=== PATIENT | female | born 1985 | race Asian ===

== ENCOUNTER 2018-02-25 10:29 | Inpatient (IN) | payer MEDICAID, OTHER ==
[~2018-02-25] VITALS: Ht 177.8 cm; Wt 68.2 kg
[2018-02-25] MEDS ORDERED: ondansetron/PF 4mg/2ml inj IV ONE ×2 (10:50→13:15)
[2018-02-25] MEDS ORDERED: morphine 4 MG/ML inj SYRINge IV ONE ×2 (10:50→13:15)
--- NOTE | 2018-02-25 10:51 | NUR ---
SINDY CONTRERAS AT BEDSIDE, ATTEMPTING IV ACCESS.
[2018-02-25 11:28] LABS: BASOPHILS % (AUTO) 0.3 % (0-1); EOSINOPHILS # (AUTO) 0.1 X10'3 (0-0.9); HEMATOCRIT 41.6 % (35.0-45.0); LYMPHOCYTES # (AUTO) 2.3 X10'3 (1.1-4.8); LYMPHOCYTES % (AUTO) 35.1 % (21-51); MEAN CORPUSCULAR HEMOGLOBIN 31.3 PG (27.0-31.0); MEAN CORPUSCULAR HGB CONC 33.6 % (33.0-36.5); MEAN PLATELET VOLUME 8.1 FL (7.4-10.4); MONOCYTES # (AUTO) 0.2 X10'3 (0-0.9); MONOCYTES % (AUTO) 3.4 % (2-12); NEUTROPHILS # (AUTO) 3.9 X10'3 (1.8-7.7); NEUTROPHILS % (AUTO) 60.2 % (42-75); PLATELET COUNT 251 X10'3 (140-440); RED BLOOD COUNT 4.48 X10'6 (4.20-5.60); RED CELL DISTRIBUTION WIDTH 12.8 % (11.5-14.5); WHITE BLOOD COUNT 6.6 X10'3 (4.5-11.0)
[2018-02-25 11:35] LABS: URINE HCG NEGATIVE (NEG)
[2018-02-25 11:39] LABS: INR 1.2 INR; PARTIAL THROMBOPLASTIN TIME 26 SECONDS (22-32); PROTHROMBIN TIME 12.2 SECONDS (9.0-12.0)
[2018-02-25 11:42] LABS: ALANINE AMINOTRANSFERASE 43 U/L (12-78); ALBUMIN/GLOBULIN RATIO 0.8 (1.1-1.5); ALKALINE PHOSPHATASE 64 IU/L (46-116); ANION GAP 10 (8-16); BILIRUBIN,TOTAL 0.5 MG/DL (0.1-1.0); BLOOD UREA NITROGEN 14 MG/DL (7-18); BUN/CREATININE RATIO 14.4 (6.6-38.0); CHLORIDE 103 MMOL/L (99-107); CREATININE 0.97 MG/DL (0.40-0.90); GLUCOSE 97 MG/DL (70-104); SODIUM 141 MMOL/L (135-145); TOTAL CARBON DIOXIDE 27.9 MMOL/L (24-32); TOTAL PROTEIN 8.9 G/DL (6.4-8.2); eGFR 66 ML/MIN
[2018-02-25] MEDS ORDERED: iohexol 300mg/ml 100ml inj. ONE (11:42)
[2018-02-25 11:43] LABS: ETHANOL < 0.010 GM/DL (0.0-0.010)
[2018-02-25 11:44] LABS: ASPARTATE AMINO TRANSFERASE 46 U/L (10-37); POTASSIUM 3.8 MMOL/L (3.5-5.1)
[2018-02-25 11:47] LABS: CLARITY,URINE CLEAR (Clear); COLOR,URINE YELLOW (Yellow); GLUCOSE, URINE NEGATIVE (Neg); KETONES,URINE NEGATIVE (Neg); LEUKOCYTE ESTERASE ,URINE NEGATIVE (Neg); NITRITES, URINE NEGATIVE (Neg); OCCULT BLOOD,URINE SMALL (Neg); PROTEIN,URINE NEGATIVE (Neg); UROBILINOGEN,URINE 0.2 E.U/dL (0.2-1.0)
[2018-02-25 11:48] LABS: URINE AMPHETAMINE SCREEN NEGATIVE (Neg); URINE BARBITUATE SCREEN NEGATIVE (Neg); URINE BENZODIAZEPINES SCREEN NEGATIVE (Neg); URINE CANNABINOID SCREEN NEGATIVE (Neg); URINE COCAINE SCREEN NEGATIVE (Neg); URINE METHADONE SCREEN NEGATIVE (Neg); URINE OPIATE SCREEN POSITIVE (Neg); URINE PHENCYCLIDINE SCREEN NEGATIVE (Neg)
[2018-02-25 11:52] LABS: UA COLLECTION TYPE STRAIGHT CATH
[2018-02-25 11:55] LABS: BACTERIA,URINE NONE SEEN /HPF (Neg); MUCUS STRANDS NONE SEEN /LPF (Neg); RBC,URINE 0-2 /HPF (0-2); SQUAMOUS EPITHELIAL CELL,UR FEW /LPF (FEW); WBC,URINE NONE SEEN /HPF (0-4)
--- NOTE | 2018-02-25 12:44 | NUR ---
CALLED PT SISTER LUCI [phone] LEFT MESSAGE FOR HER TO CALL BACK PT CHILDREN NEED TO BE PICKED UP FROM [facility], ALSO CALLED [facility] AT [facility] [phone] AND PRIMARY NURSE AT [facility] STATES RECEIVED CALL AND SOMEONE IS COMING TO AUTOMATIC I THREADING MACHINE FEEDER THE CHILDREN FROM [facility] SOON, INFORMED SU[facility]I TO LET THAT PERSON KNOW THE PATIENT IS AT [facility], [facility] STATES WILL RELAY THAT INFORMATION.
--- NOTE | 2018-02-25 12:45 | NUR ---
PT BACK FROM CT
[2018-02-25 13:15] LABS: TROPONIN I < 0.04 NG/ML (0.0-0.05)
--- NOTE | 2018-02-25 13:30 | NUR ---
DR LEAL AT BEDSIDE PLAING A C-COLLAR ON PT.
--- NOTE | 2018-02-25 13:38 | NUR ---
PT TO MRI
--- NOTE | 2018-02-25 14:30 | NUR ---
PT BACK FROM MRI
--- NOTE | 2018-02-25 14:35 | NUR ---
DR LEAL AT BEDSIDE, HE REMOVED C-COLLAR
[2018-02-25] MEDS ORDERED: NO HOME MEDS (14:50)
[2018-02-25 15:15] VITALS: BP 119/62
--- NOTE | 2018-02-25 15:15 | NUR ---
Received report from DIANE Thomas. Patient arrived to the floor stable and appropriate. IVF and Dilaudid CADD started per MD orders.
[2018-02-25] MEDS ORDERED: mag hydrox/Alum hydrox/simeth 30ml oral suspension PO PRN (15:40)
[2018-02-25] MEDS ORDERED: ondansetron/PF 4mg/2ml inj IV PRN (15:40)
[2018-02-25] MEDS ORDERED: magnesium hydroxide 30ml (MOM) UD suspension PO PRN (15:40)
[2018-02-25] MEDS ORDERED: acetaminophen 325mg tablet PO PRN (15:40)
[2018-02-25] MEDS ORDERED: CADD PCA waste documentation MC SCH (16:25)
[2018-02-25] MEDS: HYDROmorphone/NS 1 mg/ml CADD 50 ML IV SCH ×5 (17:00→23:00)
[2018-02-25] MEDS: sodium chloride 0.45% 1,000 ML IV SCH (17:15)
[2018-02-25] MEDS ORDERED: ringers solution, lacted 1,000 ML IV ONE (17:43)
--- NOTE | 2018-02-25 18:20 | NUR ---
Problems reprioritized. Patient report given, questions answered & plan of care reviewed with DIANE VARGAS.
[2018-02-25 19:30] VITALS: BP 117/73
[2018-02-26] VITALS (25 sets, daily range): BP systolic 107–174; BP diastolic 66–89
[2018-02-26] MEDS: HYDROmorphone/NS 1 mg/ml CADD 50 ML IV SCH ×12 (01:00→23:00)
[2018-02-26] MEDS: sodium chloride 0.45% 1,000 ML IV SCH ×2 (02:13→15:56)
[2018-02-26] MEDS ORDERED: famotidine 20mg tablet PO ONE (06:00)
[2018-02-26 06:25] LABS: ALBUMIN 3.2 G/DL (3.4-5.0); ANION GAP 9 (8-16); BLOOD UREA NITROGEN 10 MG/DL (7-18); CALCIUM 8.5 MG/DL (8.5-10.1); CHLORIDE 102 MMOL/L (99-107); CREATININE 0.83 MG/DL (0.40-0.90); GLUCOSE 102 MG/DL (70-104); POTASSIUM 3.8 MMOL/L (3.5-5.1); SODIUM 136 MMOL/L (135-145); eGFR 79 ML/MIN
[2018-02-26 06:32] LABS: BASOPHILS % (AUTO) 0.4 % (0-1); EOSINOPHILS # (AUTO) 0.1 X10'3 (0-0.9); EOSINOPHILS % (AUTO) 1.1 % (0-6); HEMATOCRIT 34.7 % (35.0-45.0); HEMOGLOBIN 11.6 g/dl (12.0-16.0); LYMPHOCYTES # (AUTO) 1.9 X10'3 (1.1-4.8); LYMPHOCYTES % (AUTO) 29.6 % (21-51); MEAN CORPUSCULAR HEMOGLOBIN 31.1 PG (27.0-31.0); MEAN CORPUSCULAR HGB CONC 33.5 % (33.0-36.5); MEAN CORPUSCULAR VOLUME 92.9 FL (78-98); MEAN PLATELET VOLUME 7.9 FL (7.4-10.4); MONOCYTES # (AUTO) 0.5 X10'3 (0-0.9); MONOCYTES % (AUTO) 7.8 % (2-12); NEUTROPHILS # (AUTO) 3.9 X10'3 (1.8-7.7); NEUTROPHILS % (AUTO) 61.1 % (42-75); PLATELET COUNT 233 X10'3 (140-440); RED BLOOD COUNT 3.74 X10'6 (4.20-5.60); WHITE BLOOD COUNT 6.3 X10'3 (4.5-11.0)
--- NOTE | 2018-02-26 06:59 | NUR ---
Problems reprioritized. Patient report given, questions answered & plan of care reviewed with LONDON. Addendum: 02/26/18 at 0659 by Jd Silver RN Amended: Links added.
[2018-02-26] MEDS ORDERED: BUPIVAcaine/PF 2.5mg/ml (0.25%) 10ml vial ONE (07:25)
[2018-02-26] MEDS ORDERED: ceFAZolin 1000mg inj ONE ×2 (07:25→09:51)
[2018-02-26] MEDS ORDERED: cloNIDine hcl/PF 100mcg/ml inj ONE (07:45)
[2018-02-26] MEDS ORDERED: ROPIVAcaine 0.5% (5mg/ml) 30ml vial ONE (07:45)
[2018-02-26] MEDS ORDERED: midazolam 2 mg/2 ml injection ONE (07:48)
[2018-02-26] MEDS ORDERED: fentaNYL /PF 50mcg/ml 5ml ampule ONE (07:49)
[2018-02-26] MEDS ORDERED: propofol inj 20 ML IV ONE (07:49)
[2018-02-26] MEDS ORDERED: hydrALAZINE 20mg/ml inj. IV PRN (07:55)
[2018-02-26] MEDS ORDERED: morphine 4 MG/ML inj SYRINge IV PRN ×2 (07:55)
[2018-02-26] MEDS ORDERED: fentaNYL/PF 50MCG/1 ML 2ML syringe IV PRN ×2 (07:55)
[2018-02-26] MEDS ORDERED: labetalol 20mg/4ml (5mg/ml) syringe IV PRN (07:55)
[2018-02-26] MEDS ORDERED: ringers solution, lacted 1,000 ML IV SCH (07:55)
[2018-02-26] MEDS ORDERED: ondansetron/PF 4mg/2ml inj IV PRN (07:55)
[2018-02-26] MEDS ORDERED: enoxaparin 40mg/0.4ml syringe SUBCUT SCH (08:00)
[2018-02-26] MEDS ORDERED: sevoflurane 250ml liquid IH ONE (08:02)
[2018-02-26] MEDS ORDERED: LIDOcaine 2% (20mg/ml) 5ml vial ONE (08:43)
[2018-02-26] MEDS ORDERED: dexamethasone sod phosphate 4mg/ml inj. ONE (09:11)
[2018-02-26] MEDS ORDERED: ondansetron/PF 4mg/2ml inj ONE (09:12)
--- NOTE | 2018-02-26 11:25 | NUR ---
Received from OR via SURGICAL BED, accompanied by Anesthesiologist DR. BRISCOE and report given by Anesthesiolgist. PT ARRIVED WITH O2 VIA MASK AT 10L WITH OPA IN PLACE. DR. BRISCOE RESPOS AIRWAY AND HELD JAW FOR SEVERAL MINS PT WAS STILL OBSTRUCTING. REPOS OF OPA WAS HELPFUL AND PT ABLE TOO MOVE AIR WITHOUT JAW LIFT. PULSES AND JANITOR CLEANER WNL. DRESSINGS AND CASTS CDI. LT ARM IN SLING, LT LEG IN IMMOBILIZER. FC IN PLACE WITH CLEAT YELLOW URINE.
--- NOTE | 2018-02-26 11:45 | NUR ---
PT MORE AWAKE ANSWERS YES/NO QUESTIONS WITH HEAD NODS. OPA REMOVED PT CDB WELL.
[2018-02-26] MEDS ORDERED: meperidine/PF 25mg/ml syringe ONE (12:00)
--- NOTE | 2018-02-26 13:00 | NUR ---
Receive report from OR. Patient is stable. Will be coming up shortly.
--- NOTE | 2018-02-26 13:15 | NUR ---
Report called to receiving nurse ELLIOT RN. Transferred via BED TO ROOM 353A WITH NO Belongings BROUGHT TO THE RR. FAMILY NOTIFIED BY DR. SOLANO PT OUT OF SURGERY AND THINGS WENT WELL. Special Issues communicated to receiving nurse. VSS ON 4L NC.
[2018-02-26] MEDS: ceFAZolin 1GM/D5W- ADD-VANTAGE 50 ML IV SCH ×2 (16:02→23:38)
--- NOTE | 2018-02-26 17:55 | NUR ---
Problems reprioritized. Patient report given, questions answered & plan of care reviewed with DIANE Britt.
[2018-02-27] MEDS: HYDROmorphone/NS 1 mg/ml CADD 50 ML IV SCH ×12 (01:00→23:00)
[2018-02-27 05:12] LABS: BASOPHILS % (AUTO) 0.2 % (0-1); EOSINOPHILS % (AUTO) 0 % (0-6); HEMATOCRIT 33.4 % (35.0-45.0); HEMOGLOBIN 11.4 g/dl (12.0-16.0); LYMPHOCYTES # (AUTO) 1.2 X10'3 (1.1-4.8); LYMPHOCYTES % (AUTO) 21.5 % (21-51); MEAN CORPUSCULAR HEMOGLOBIN 31.5 PG (27.0-31.0); MEAN CORPUSCULAR VOLUME 92.5 FL (78-98); MEAN PLATELET VOLUME 7.6 FL (7.4-10.4); MONOCYTES # (AUTO) 0.3 X10'3 (0-0.9); MONOCYTES % (AUTO) 5.2 % (2-12); NEUTROPHILS # (AUTO) 4.2 X10'3 (1.8-7.7); NEUTROPHILS % (AUTO) 73.1 % (42-75); PLATELET COUNT 183 X10'3 (140-440); RED BLOOD COUNT 3.61 X10'6 (4.20-5.60); RED CELL DISTRIBUTION WIDTH 12.4 % (11.5-14.5); WHITE BLOOD COUNT 5.8 X10'3 (4.5-11.0)
[2018-02-27 05:36] LABS: ALBUMIN 2.6 G/DL (3.4-5.0); ANION GAP 7 (8-16); BLOOD UREA NITROGEN 8 MG/DL (7-18); BUN/CREATININE RATIO 9.2 (6.6-38.0); CALCIUM 8.1 MG/DL (8.5-10.1); CHLORIDE 100 MMOL/L (99-107); CREATININE 0.87 MG/DL (0.40-0.90); GLUCOSE 108 MG/DL (70-104); POTASSIUM 4.1 MMOL/L (3.5-5.1); SODIUM 134 MMOL/L (135-145); TOTAL CARBON DIOXIDE 26.7 MMOL/L (24-32); eGFR 75 ML/MIN
[2018-02-27 05:53] VITALS: BP 109/63
--- NOTE | 2018-02-27 06:30 | NUR ---
Patient in room [facility] 353. I have received report from DIANE Britt and had the opportunity to ask questions and assume patient care.
--- NOTE | 2018-02-27 06:36 | NUR ---
Problems reprioritized. Patient report given, questions answered & plan of care reviewed with MONSERRAT. Addendum: 02/27/18 at 0637 by Jd Silver RN Amended: Links added.
[2018-02-27 07:00] VITALS: BP 107/59
[2018-02-27] MEDS: ceFAZolin 1GM/D5W- ADD-VANTAGE 50 ML IV SCH ×2 (08:19→16:18)
[2018-02-27 11:05] VITALS: BP 123/68
[2018-02-27] MEDS: enoxaparin 40mg/0.4ml syringe SUBCUT SCH (13:37)
--- NOTE | 2018-02-27 18:50 | NUR ---
Problems reprioritized. Patient report given, questions answered & plan of care reviewed with DIANE Leary.
--- NOTE | 2018-02-27 19:04 | NUR ---
Patient in room [facility] 353. I have received report from DIANE Anders and had the opportunity to ask questions and assume patient care.
[2018-02-27 20:00] VITALS: BP 121/69
[2018-02-27] MEDS: sodium chloride 0.45% 1,000 ML IV SCH (22:17)
[2018-02-28] VITALS: BP 101/63
[2018-02-28] MEDS: ceFAZolin 1GM/D5W- ADD-VANTAGE 50 ML IV SCH ×2 (00:06→07:35)
[2018-02-28] MEDS: HYDROmorphone/NS 1 mg/ml CADD 50 ML IV SCH ×10 (01:00→19:00)
[2018-02-28 05:38] LABS: BASOPHILS % (AUTO) 0.1 % (0-1); EOSINOPHILS % (AUTO) 0 % (0-6); HEMATOCRIT 34.4 % (35.0-45.0); HEMOGLOBIN 11.4 g/dl (12.0-16.0); LYMPHOCYTES # (AUTO) 0.9 X10'3 (1.1-4.8); LYMPHOCYTES % (AUTO) 11.3 % (21-51); MEAN CORPUSCULAR HGB CONC 33.3 % (33.0-36.5); MEAN CORPUSCULAR VOLUME 93.1 FL (78-98); MEAN PLATELET VOLUME 7.8 FL (7.4-10.4); MONOCYTES # (AUTO) 0.5 X10'3 (0-0.9); MONOCYTES % (AUTO) 6.1 % (2-12); NEUTROPHILS # (AUTO) 6.5 X10'3 (1.8-7.7); NEUTROPHILS % (AUTO) 82.5 % (42-75); PLATELET COUNT 195 X10'3 (140-440); RED BLOOD COUNT 3.69 X10'6 (4.20-5.60); RED CELL DISTRIBUTION WIDTH 12.5 % (11.5-14.5); WHITE BLOOD COUNT 7.9 X10'3 (4.5-11.0)
[2018-02-28 05:55] LABS: ALBUMIN 2.6 G/DL (3.4-5.0); ANION GAP 9 (8-16); BLOOD UREA NITROGEN 9 MG/DL (7-18); BUN/CREATININE RATIO 11.7 (6.6-38.0); CALCIUM 8.9 MG/DL (8.5-10.1); CHLORIDE 98 MMOL/L (99-107); CREATININE 0.77 MG/DL (0.40-0.90); GLUCOSE 124 MG/DL (70-104); POTASSIUM 3.9 MMOL/L (3.5-5.1); SODIUM 134 MMOL/L (135-145); TOTAL CARBON DIOXIDE 26.9 MMOL/L (24-32); eGFR 86 ML/MIN
--- NOTE | 2018-02-28 06:30 | NUR ---
Patient in room [facility]TH[facility] 4009. I have received report from DIANE Leary and had the opportunity to ask questions and assume patient care.
--- NOTE | 2018-02-28 06:36 | NUR ---
Problems reprioritized. Patient report given, questions answered & plan of care reviewed with DIANE Anders.
[2018-02-28 07:00] VITALS: BP 100/61
[2018-02-28] MEDS: enoxaparin 40mg/0.4ml syringe SUBCUT SCH (07:35)
[2018-02-28 12:00] VITALS: BP 116/66
[2018-02-28] MEDS: sodium chloride 0.45% 1,000 ML IV SCH (15:46)
--- NOTE | 2018-02-28 16:50 | NUR ---
Report called to receiving RNMeme.
--- NOTE | 2018-02-28 17:20 | NUR ---
Pt transferred to room 4009B
[2018-02-28 18:00] VITALS: BP 135/84
--- NOTE | 2018-02-28 18:15 | NUR ---
Patient in room ORTHO 4009. I have received report from DIANE Valentine and had the opportunity to ask questions and assume patient care.
[2018-02-28 22:00] VITALS: BP 120/79
[2018-03-01] MEDS: oxyCODONE/APAP 5-325mg tablet PO PRN ×4 (05:03→18:56)
[2018-03-01 06:00] VITALS: BP 128/79
--- NOTE | 2018-03-01 06:32 | NUR ---
Problems reprioritized. Patient report given, questions answered & plan of care reviewed with DIANE Delatorre.
[2018-03-01] MEDS: enoxaparin 40mg/0.4ml syringe SUBCUT SCH (08:04)
[2018-03-01 10:00] VITALS: BP 127/82
[2018-03-01 18:00] VITALS: BP 130/79
--- NOTE | 2018-03-01 18:20 | NUR ---
Problems reprioritized. Patient report given, questions answered & plan of care reviewed with Keisha CONTRERAS.
--- NOTE | 2018-03-01 18:31 | NUR ---
Patient in room ORTHO 4009. I have received report from Nandini CONTRERAS and had the opportunity to ask questions and assume patient care.
[2018-03-01 22:00] VITALS: BP 132/79
[2018-03-02] MEDS: oxyCODONE/APAP 5-325mg tablet PO PRN ×3 (00:04→21:08)
[2018-03-02 06:00] VITALS: BP 138/85
--- NOTE | 2018-03-02 06:43 | NUR ---
Problems reprioritized. Patient report given, questions answered & plan of care reviewed with Gabriela CONTRERAS.
[2018-03-02] MEDS: oxyCODONE/APAP 10/325mg tablet PO PRN ×2 (08:28→13:18)
[2018-03-02] MEDS: enoxaparin 40mg/0.4ml syringe SUBCUT SCH (08:30)
[2018-03-02 10:00] VITALS: BP 133/90
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
[2018-03-02 18:00] VITALS: BP 143/86
--- NOTE | 2018-03-02 18:35 | NUR ---
Received report from Gabriela CONTRERAS pt is awake and alert had visitors at bedside, in no apparent distress, call light and items of freq use within reach.
[2018-03-02 22:00] VITALS: BP 110/80
[2018-03-03] MEDS: oxyCODONE/APAP 10/325mg tablet PO PRN ×5 (04:05→23:05)
--- NOTE | 2018-03-03 06:24 | NUR ---
Problems reprioritized. Patient report given, questions answered & plan of care reviewed with Gabriela CONTRERAS.
[2018-03-03] MEDS: enoxaparin 40mg/0.4ml syringe SUBCUT SCH (08:35)
[2018-03-03 10:00] VITALS: BP 131/80
[2018-03-03 17:00] VITALS: BP 128/77
[2018-03-03] MEDS: magnesium hydroxide 30ml (MOM) UD suspension PO SCH (20:05)
[2018-03-03 22:00] VITALS: BP 121/67
[2018-03-04] MEDS: oxyCODONE/APAP 10/325mg tablet PO PRN ×3 (04:16→13:50)
[2018-03-04 06:00] VITALS: BP 112/65
--- NOTE | 2018-03-04 06:35 | NUR ---
Problems reprioritized. Patient report given, questions answered & plan of care reviewed with Aissatou CONTRERAS.
[2018-03-04] MEDS: enoxaparin 40mg/0.4ml syringe SUBCUT SCH (08:55)
[2018-03-04] MEDS: magnesium hydroxide 30ml (MOM) UD suspension PO SCH (08:55)
[2018-03-04 10:00] VITALS: BP 119/74
[2018-03-04] MEDS ORDERED: magnesium citrate 296ml oral solution PO ONE (11:35)
== END 2018-03-04 14:00 | DRG 912 ==
LOC: ER 10:29 → ED HOLD 15:37 → SUR 3N 17:06 → ORTHO 4S 02-28 16:50
PROVIDERS: ADMIT Surgery; ATTEND Surgery
PROC: 2W3DX1Z Immobilization of Left Lower Arm using Splint (ICD-10-PCS; 2018-02-25)
PROC: 0PSJ04Z Reposition Left Radius with Internal Fixation Device, Open Approach (ICD-10-PCS; 2018-02-26)
PROC: 0PSJ04Z Reposition Left Radius with Internal Fixation Device, Open Approach (ICD-10-PCS; 2018-02-26)
PROC: 3E0T3BZ Introduction of Anesthetic Agent into Peripheral Nerves and Plexi, Percutaneous Approach (ICD-10-PCS; 2018-02-26)
PROC: 0PSL04Z Reposition Left Ulna with Internal Fixation Device, Open Approach (ICD-10-PCS; 2018-02-26)
PROC: 0QSH04Z Reposition Left Tibia with Internal Fixation Device, Open Approach (ICD-10-PCS; principal; 2018-02-26 08:02)
DX: S82.142A Displaced bicondylar fracture of left tibia, initial encounter for closed fracture (principal); S32.309A Unspecified fracture of unspecified ilium, initial encounter for closed fracture; S12.600A Unspecified displaced fracture of seventh cervical vertebra, initial encounter for closed fracture; S22.20XA Unspecified fracture of sternum, initial encounter for closed fracture; S52.302A Unspecified fracture of shaft of left radius, initial encounter for closed fracture; M54.2 Cervicalgia; S52.202A Unspecified fracture of shaft of left ulna, initial encounter for closed fracture; S52.572A Other intraarticular fracture of lower end of left radius, initial encounter for closed fracture; V29.9XXA Motorcycle rider (driver) (passenger) injured in unspecified traffic accident, initial encounter; Y93.89 Activity, other specified; Y99.8 Other external cause status; Y92.410 Unspecified street and highway as the place of occurrence of the external cause
CPT/HCPCS: 29125; 36415; 70450; 71045; 71260; 72125; 72128; 72131; 72141; 73090; 73130; 73564; 73590; 73700; 74177; 76001; 80048; 80053; 80305; 80320; 81001; 81025; 84484; 85025; 85610; 85730; 87070; 93005; 96374; 96375; 96376; 97110; 97116; 97162; 97530; 99285; A6222; A6402; A6446; A6449; A7000; C1713; G0378; J0690; J0735; J1100; J1170; J1650; J2001; J2175; J2250; J2270; J2405; J2704; J2795; J3010; J3490; J7120; Q9967

== ENCOUNTER → 2018-07-13 | Day surgery (SDC) | payer MEDICAID ==
[2018-07-06 13:17] LABS: BASOPHILS % (AUTO) 0.5 % (0-1); EOSINOPHILS % (AUTO) 0.8 % (0-6); LYMPHOCYTES % (AUTO) 41.2 % (21-51); MEAN CORPUSCULAR HEMOGLOBIN 32.3 PG (27.0-31.0); MEAN CORPUSCULAR HGB CONC 34.7 g/dL (33.0-36.5); MEAN CORPUSCULAR VOLUME 93.3 FL (78-98); MEAN PLATELET VOLUME 7.2 FL (7.4-10.4); MONOCYTES # (AUTO) 0.3 X10'3 (0-0.9); MONOCYTES % (AUTO) 5.8 % (2-12); NEUTROPHILS # (AUTO) 2.5 X10'3 (1.8-7.7); NEUTROPHILS % (AUTO) 51.7 % (42-75); PRE OP HEMATOCRIT 39.1 % (35.0-45.0); PRE OP HEMOGLOBIN 13.6 g/dL (12.0-16.0); PRE OP PLATELET COUNT 287 X10'3 (140-440); RED BLOOD COUNT 4.19 X10'6 (4.20-5.60); RED CELL DISTRIBUTION WIDTH 12.3 % (11.5-14.5)
[2018-07-06 13:33] LABS: HCG SERUM QL NEGATIVE
[2018-07-06 13:59] LABS: ALBUMIN 3.8 G/DL (3.4-5.0); ALBUMIN/GLOBULIN RATIO 0.9 (1.1-1.5); ALKALINE PHOSPHATASE 69 IU/L (46-116); BLOOD UREA NITROGEN 14 MG/DL (7-18); BUN/CREATININE RATIO 18.7 (6.6-38.0); CALCIUM 9.7 MG/DL (8.5-10.1); CHLORIDE 105 MMOL/L (99-107); CREATININE 0.75 MG/DL (0.40-0.90); PRE OP ALT 25 U/L (30-65); PRE OP ANION GAP 6 (8-16); PRE OP AST 16 U/L (10-37); PRE OP BILIRUB, TOTAL 0.3 MG/DL (0.0-1.0); PRE OP GLUCOSE 99 MG/DL (70-104); PRE OP POTASSIUM 3.7 MMOL/L (3.4-5.1); PRE OP SODIUM 138 MMOL/L (135-145); TOTAL PROTEIN 8.2 G/DL (6.4-8.2); eGFR 88 ML/MIN
[2018-07-13] VITALS (12 sets, daily range): BP systolic 101–121; BP diastolic 58–78
[~2018-07-13] VITALS: Ht 160 cm; Wt 71.7 kg
[~2018-07-13] MED LIST: BUPIVAcaine/PF 2.5mg/ml (0.25%) 10ml vial ONE; CHOL100046 PO; LIDOcaine 0.5% (5mg/ml) 50ml vial ONE; MIDAZolam 5mg/5ml vial ONE; MULT-969 PO; VITC500T PO; ceFAZolin 1GM/D5W- ADD-VANTAGE 50 ML IV ONE; famotidine 20mg tablet PO ONE; fentaNYL/PF 50MCG/1 ML 2ML syringe ONE; meperidine/PF 25mg/ml syringe IV PRN; morphine 4 MG/ML inj SYRINge IV PRN; ondansetron/PF 4mg/2ml inj IV PRN; proCHLORperazine 10 MG/2 ml inj IV PRN; ringers solution, lacted 1,000 ML IV SCH
--- NOTE | 2018-07-13 09:50 | NUR ---
Received from OR via BED, accompanied by Anesthesiologist DR LU and report given by Anesthesiolgist. PATIENT A&OX4, DENIES PAIN, V/S WNL, NEUROVASCULAR CHECKS INTACT, 20G PIV RUE, SCD ON, DRESSING TO LEFT WRIST CDI ELEVATED WITH ICEBAG APPLIED.
--- NOTE | 2018-07-13 11:20 | NUR ---
PATIENT TRANFERED BACK TO PASS REPORT GIVEN TO ALBARO WHO HAS TAKEN OVER PATIENT CARE. PATIENT V/S WNL, CSM INTACT, 20G PIV IN RUE. DRESSING CDI TO WRIST.
== END | disposition home or self-care (01) ==
LOC: PAS 07:44
PROVIDERS: ATTEND Orthopaedic Surgery Hand Surgery
DX: S52.302D Unspecified fracture of shaft of left radius, subsequent encounter for closed fracture with routine healing (principal); S52.202D Unspecified fracture of shaft of left ulna, subsequent encounter for closed fracture with routine healing; S52.502D Unspecified fracture of the lower end of left radius, subsequent encounter for closed fracture with routine healing; Z98.890 Other specified postprocedural states; X58.XXXD Exposure to other specified factors, subsequent encounter
CPT/HCPCS: 29846; 36415; 80053; 84703; 85025; J0690; J2001; J2250; J3010; J3490; J7120; A6449; A7000

== ENCOUNTER 2023-08-01 16:05 | Outpatient (CLI) | payer MEDICAID, OTHER ==
[~2023-08-01 16:05] MED LIST changes: -BUPIVAcaine/PF 2.5mg/ml (0.25%) 10ml vial ONE; -LIDOcaine 0.5% (5mg/ml) 50ml vial ONE; -MIDAZolam 5mg/5ml vial ONE; -ceFAZolin 1GM/D5W- ADD-VANTAGE 50 ML IV ONE; -famotidine 20mg tablet PO ONE; -fentaNYL/PF 50MCG/1 ML 2ML syringe ONE; -meperidine/PF 25mg/ml syringe IV PRN; -morphine 4 MG/ML inj SYRINge IV PRN; -ondansetron/PF 4mg/2ml inj IV PRN; -proCHLORperazine 10 MG/2 ml inj IV PRN; -ringers solution, lacted 1,000 ML IV SCH
== END 2023-08-01 23:59 | disposition home or self-care (01) ==
LOC: RAD 16:05
PROVIDERS: ATTEND Obstetrics & Gynecology
DX: Z34.91 Encounter for supervision of normal pregnancy, unspecified, first trimester (principal); Z3A.01 Less than 8 weeks gestation of pregnancy
CPT/HCPCS: 76801